=== PATIENT | female | born 1950 | race Caucasian/White ===

== ENCOUNTER → 2021-05-03 | Outpatient (CLI) | payer OTHER ==
[~2021-05-03] MED LIST: ADULT LOW DOSE81 MG PO; ATORVASTATIN CA40 MG PO; COREG 3.125M3.125 MG PO; COZAAR 25MG TAB25 MG PO; HYGROTON TAB 2525 MG PO; LEVOCETIRIZINE D5 MG PO; MONTELUKAST SOD10 MG PO; NITROGLYCERIN0.4 MG SL; PANTOPRAZOLE SO40 MG PO
== END ==
LOC: MAMO 13:00
DX: Z78.0 Asymptomatic menopausal state (principal)
CPT/HCPCS: 77080

== ENCOUNTER → 2021-05-20 | Outpatient (CLI) | payer OTHER | LOC: KOH-I 10:35 | DX: M25.552 Pain in left hip (principal); M25.551 Pain in right hip; M25.561 Pain in right knee; R93.7 Abnormal findings on diagnostic imaging of other parts of musculoskeletal system | CPT/HCPCS: 73522; 73562 ==